=== PATIENT | female | born 1960 | race Hispanic/Latino ===

== ENCOUNTER 2017-08-10 06:11 | Day surgery (SDC) | payer OTHER ==
[2017-08-09] MEDS: CEFAZOLIN SODIUM 1 GM VIAL IVP SCH (07:30)
[2017-08-09 15:32] LABS: BASOPHILS % (AUTO) 0.4 % (0.0-5.0); EOSINOPHILS % (AUTO) 1.6 % (0.0-8.0); LYMPHOCYTES % (AUTO) 35.2 % (21.0-51.0); MEAN CORPUSCULAR VOLUME 83.3 fL (79-99); MONOCYTES % (AUTO) 6.1 % (3.0-13.0); NEUTROPHILS % (AUTO) 56.7 % (40.0-77.0); PLATELET COUNT (AUTO) 153 K/uL (130-400); RED BLOOD CELL COUNT(AUTO) 4.44 MIL/uL (4.00-5.50); RED CELL DISTRIBUTION WIDTH 13.6 % (11.0-15.5); WHITE BLOOD COUNT (AUTO) 5.3 K/uL (4.8-10.8)
[2017-08-09 15:44] LABS: CREATININE 0.8 mg/dL (0.5-1.5); POTASSIUM 3.8 mmol/L (3.5-5.1)
[2017-08-09 15:49] VITALS: BP 139/84
[~2017-08-10] VITALS: Ht 160 cm; Wt 66.8 kg
[2017-08-10] VITALS (15 sets, daily range): BP systolic 90–144; BP diastolic 43–76
[~2017-08-10 06:11] MED LIST: ASCO500C18 PO; CALC-724 PO; FISH1CAP49 PO; FOLI0.8T PO; GLUC-145 PO; IBUP-2077 PO; LETR2.5T6 PO; LISI-617 PO; METF10004 PO; SIMV20TA6 PO; VITA1CAP PO
[2017-08-10] MEDS ORDERED: NEOSTIGMINE 5MG/5ML SYR IV ONE (06:44)
[2017-08-10] MEDS ORDERED: DEXAMETHASONE SOD PHOSPHATE 10MG/ML 1ML VIAL ONE ×2 (06:44→08:43)
[2017-08-10] MEDS ORDERED: GLYCOPYRROLATE 0.2 MG/ML 5 ML VIAL ONE (06:44)
[2017-08-10] MEDS ORDERED: ONDANSETRON HCL 4 MG/2 ML VIAL ONE (06:44)
[2017-08-10] MEDS ORDERED: LIDOCAINE PF 2% 5ML ABBOJECT ONE (06:44)
[2017-08-10] MEDS ORDERED: PROPOFOL 10 MG/ML 20ML VIAL IV ONE (06:45)
[2017-08-10] MEDS ORDERED: MIDAZOLAM HCL 1 MG/ML 2ML VIAL ONE (06:45)
[2017-08-10] MEDS ORDERED: FENTANYL CITRATE PF 50 MCG/1 ML 2ML VIAL ONE (06:46)
[2017-08-10] MEDS ORDERED: LIDOCAINE HCL 2% JELLY 5 ML ONE (06:53)
[2017-08-10] MEDS ORDERED: SODIUM CHLORIDE 0.9% 1000ML 1,000 ML IV ONE (07:43)
[2017-08-10] MEDS ORDERED: CYAN250010 PO (08:00)
[2017-08-10] MEDS ORDERED: LIDOCAINE HCL/EPINEPHRINE 50 ML VIAL IJ ONE (08:15)
[2017-08-10] MEDS: CEFAZOLIN SODIUM 1 GM VIAL IVP SCH (08:27)
[2017-08-10] MEDS ORDERED: CEFAZOLIN SODIUM 1 GM VIAL ONE (08:37)
[2017-08-10] MEDS ORDERED: ROPIVACAINE 0.5% 5MG/ML 30ML IJ ONE (08:42)
[2017-08-10] MEDS ORDERED: ONDANSETRON HCL MDV 20ML 2 MG/ML VIAL ONE (08:43)
[2017-08-10] MEDS ORDERED: METOCLOPRAMIDE 10 MG/2 ML VIAL ONE (08:43)
[2017-08-10] MEDS ORDERED: EPHEDRINE SULFATE 50 MG/ML AMPULE ONE (08:44)
[2017-08-10] MEDS ORDERED: KETOROLAC TROMETHAMINE 30MG/ML ONE (09:19)
[2017-08-10] MEDS ORDERED: MEPERIDINE-PF 25 MG/ML SYG ONE (09:19)
== END 2017-08-10 11:10 | disposition home or self-care (01) ==
LOC: DAH 06:11
PROVIDERS: ATTEND Orthopaedic Surgery
DX: M65.341 Trigger finger, right ring finger (principal); E11.9 Type 2 diabetes mellitus without complications; I10 Essential (primary) hypertension; E78.00 Pure hypercholesterolemia, unspecified; M81.0 Age-related osteoporosis without current pathological fracture; Z98.890 Other specified postprocedural states; Z68.26 Body mass index [BMI] 26.0-26.9, adult; Z79.84 Long term (current) use of oral hypoglycemic drugs; Z79.899 Other long term (current) drug therapy
CPT/HCPCS: 26055; 36415; 80048; 82948 ×2; 85025; A4218; A4930; A6223; A6445; J0690 ×2; J1100 ×2; J1885; J2001; J2175; J2250; J2405; J2704; J2710; J2765; J2795; J3010; J3490 ×2; J7030

== ENCOUNTER 2021-11-30 21:19 | Emergency (ER) | payer OTHER ==
[~2021-11-30 21:19] MED LIST changes: +AEC81 PO; +AMIO200T44 PO; -ASCO500C18 PO; +ATOR40TA69 PO; -CALC-724 PO; -FISH1CAP49 PO; -FOLI0.8T PO; +FURO20TA4 PO; -GLUC-145 PO; -IBUP-2077 PO; -LETR2.5T6 PO; -LISI-617 PO; +METF-446 PO; -METF10004 PO; +METO-408 PO; -SIMV20TA6 PO; -VITA1CAP PO
[2021-11-30] MEDS ORDERED: ACETAMINOPHEN WITH CODEINE 1 TAB TAB PO ONE (21:30)
[2021-11-30 21:42] LABS: BASOPHILS % (AUTO) 0.2 % (0.0-5.0); EOSINOPHILS % (AUTO) 0.7 % (0.0-8.0); LYMPHOCYTES % (AUTO) 10.1 % (21.0-51.0); MEAN CORPUSCULAR HEMOGLOBIN 30.2 pg (27.0-33.0); MEAN CORPUSCULAR HGB CONC 34.3 g/dL (32.0-36.0); MONOCYTES % (AUTO) 7.1 % (3.0-13.0); NEUTROPHILS % (AUTO) 81.4 % (40.0-77.0); PLATELET COUNT (AUTO) 201 K/uL (130-400); RED BLOOD CELL COUNT(AUTO) 3.41 MIL/uL (4.00-5.50); RED CELL DISTRIBUTION WIDTH 15.8 % (11.0-15.5); WHITE BLOOD COUNT (AUTO) 8.3 K/uL (4.8-10.8)
[2021-11-30 21:52] LABS: CARBON DIOXIDE 27 mmol/L (21-32); CHLORIDE 99 mmol/L (101-111); CREATININE 0.8 mg/dL (0.5-1.5); GLOMERULAR FILTR. RATE CALC 78 mL/min (>60); GLUCOSE,RANDOM 114 mg/dL (70-105); POTASSIUM 3.1 mmol/L (3.5-5.1); SODIUM SERUM 136 mmol/L (136-145); UREA NITROGEN, BLOOD 10 mg/dL (7-18)
[2021-11-30] MEDS ORDERED: POTASSIUM BICARB/CIT AC 25 MEQ TABLET.EFF PO ONE (22:00)
[2021-11-30 22:01] LABS: B-TYPE NATRIURETIC PEPTIDE 243 pg/mL (0-100)
[2021-11-30 22:02] LABS: ALANINE AMINOTRANSFERASE 24 U/L (12-78); ALBUMIN 3.1 g/dL (3.5-5.0); ASPARTATE AMINOTRANSFERASE 22 U/L (10-37); TOTAL PROTEIN, SERUM 6.5 g/dL (6.0-8.3)
[2021-11-30 22:04] LABS: CRP QUANTITATIVE < 2.00 mg/L (0.00-9.0)
[2021-11-30 22:10] LABS: APPEARANCE,URINE CLEAR (CLEAR); BILIRUBIN,URINE NEGATIVE (NEGATIVE); COLOR,URINE YELLOW (YELLOW); GLUCOSE, URINE (UA) NEGATIVE (NEGATIVE); KETONES,URINE NEGATIVE (NEGATIVE); LEUKOCYTE ESTERASE ,URINE NEGATIVE (NEGATIVE); NITRATE,URINE NEGATIVE (NEGATIVE); OCCULT BLOOD,URINE NEGATIVE (NEGATIVE); PH,URINE 7.5 (5.0-8.0); PROTEIN,URINE NEGATIVE (NEGATIVE); UROBILINOGEN,URINE >=8.0 mg/dL (0.2-1.0)
[2021-11-30] MEDS ORDERED: BUDESONIDE 0.5 MG/2 ML INH IH STA (22:14)
[2021-11-30] MEDS ORDERED: AMOX/CLAV 875/125MG TAB PO ONE (22:30)
[2021-11-30] MEDS ORDERED: AZITHROMYCIN 250 MG TABLET PO ONE (22:30)
[2021-11-30] MEDS ORDERED: IPRATROPIUM/ALBUTEROL SULFATE 3 ML SOLUTION IH ONE (22:30)
[2021-11-30] MEDS ORDERED: ALBU8.5H8 IH (22:45)
[2021-11-30] MEDS ORDERED: ACET-2247 PO (22:45)
[2021-11-30] MEDS ORDERED: AMOX1TAB16 PO (22:45)
[2021-11-30] MEDS ORDERED: CEFTRIAXONE 1G VIAL ONE (22:55)
[2021-11-30 22:58] VITALS: BP 100/53
[2021-11-30] MEDS ORDERED: CEFTRIAXONE 1G VIAL IVP ONE (23:00)
== END 2021-11-30 23:21 | disposition home or self-care (01) ==
LOC: EDH 21:19
DX: M94.0 Chondrocostal junction syndrome [Tietze] (principal); J40 Bronchitis, not specified as acute or chronic; Z20.822 Contact with and (suspected) exposure to COVID-19; E11.9 Type 2 diabetes mellitus without complications; I10 Essential (primary) hypertension; I25.10 Atherosclerotic heart disease of native coronary artery without angina pectoris; Z79.82 Long term (current) use of aspirin; Z79.84 Long term (current) use of oral hypoglycemic drugs; Z95.1 Presence of aortocoronary bypass graft; Z85.3 Personal history of malignant neoplasm of breast
CPT/HCPCS: 99285; 96374; 71045; 87635; 84484; 80053; 83880; 85025; 87804 ×2; 83605; 86140; 81003; 36415; 93005; 94640 ×2; C9803; J0696

== ENCOUNTER → 2022-03-16 | Outpatient (CLI) | payer OTHER ==
[~2022-03-16] MED LIST changes: +ACET-2247 PO; +ALBU8.5H8 IH; +AMOX1TAB16 PO
== END | disposition home or self-care (01) ==
LOC: SHCH 10:10
PROVIDERS: ATTEND Internal Medicine Cardiovascular Disease
DX: I08.0 Rheumatic disorders of both mitral and aortic valves (principal); I11.9 Hypertensive heart disease without heart failure; I48.0 Paroxysmal atrial fibrillation; I25.10 Atherosclerotic heart disease of native coronary artery without angina pectoris; E78.5 Hyperlipidemia, unspecified; Z95.1 Presence of aortocoronary bypass graft
CPT/HCPCS: 93306

== ENCOUNTER → 2023-01-22 | Outpatient (CLI) | payer OTHER ==
[2023-01-22 13:11] LABS: ALBUMIN 4.1 g/dL (3.5-5.0); BILIRUBIN,DIRECT 0.1 mg/dL (0.0-0.3); BILIRUBIN,TOTAL 0.7 mg/dL (0.2-1.0); T4 (THYROXINE) 12.4 ug/dL (4.7-13.3); THYROID STIMULATING HORMONE 1.64 uIU/mL (0.36-3.74); TOTAL PROTEIN, SERUM 7.8 g/dL (6.0-8.3)
== END | disposition home or self-care (01) ==
LOC: LAB 08:27
PROVIDERS: ATTEND Internal Medicine Cardiovascular Disease
DX: I25.10 Atherosclerotic heart disease of native coronary artery without angina pectoris (principal); D64.9 Anemia, unspecified; I10 Essential (primary) hypertension; R53.1 Weakness; Z95.1 Presence of aortocoronary bypass graft
CPT/HCPCS: 36415; 80076; 84436; 84443; 84479

== ENCOUNTER → 2023-03-21 | Outpatient (CLI) | payer OTHER ==
[~2023-03-21] MED LIST changes: +ALBUTEROL 0.083% 2.5 MG/3 ML INH IH ONE
== END | disposition home or self-care (01) ==
LOC: RESP 08:21
PROVIDERS: ATTEND Internal Medicine Cardiovascular Disease
DX: I48.0 Paroxysmal atrial fibrillation (principal); I21.4 Non-ST elevation (NSTEMI) myocardial infarction
CPT/HCPCS: 94060; 94729